=== PATIENT | female | born 1980 | race Two or more races ===

== ENCOUNTER 2019-12-05 19:49 | Emergency (ER) | payer MEDICAID ==
[~2019-12-05] VITALS: Ht 152.4 cm; Wt 63.0 kg
[~2019-12-05 19:49] MED LIST: NKM
[2019-12-05 19:56] VITALS: BP 114/70
--- NOTE | 2019-12-05 19:56 | NUR ---
ED Nurse Note: Pt walked in to ED from home c/o dry cough x 2 weeks. Denies fever/ chills. No SOB. Not in any distress. ERPA at bedside.
--- NOTE | 2019-12-05 20:00 | NUR ---
ED Nurse Note: Urine specimen collected and sent to lab.
--- NOTE | 2019-12-05 20:07 | NUR ---
ED Nurse Note: Xray at bedside.
--- NOTE | 2019-12-05 20:20 | Emergency Room Report ---
History of Present Illness General Chief Complaint: Upper Respiratory Illness Source: Patient Present Illness HPI 39 YO female presents to the ED c/o dry persistent cough x 2 weeks. She denies fevers or chills. She denies pain. She reports having some nasal congestion and rhinorrhea early on which has resolved. She reports her son was seen last week for similar symptoms and was placed onto antibiotics, and is now better. Pt. reports she is UTD with vaccinations. She denies recent travel. She denies hx of asthma, COPD or smoking hx. She denies any significant past medical history. She denies ST, ear pain, GAMEZ, neck pain/stiffness. She denies CP, Palpitations or SOB. Pt. reports her cough is worse at night. Allergies: Coded Allergies: NO KNOWN ALLERGIES (Unverified Allergy, Unknown, 09/13/15) Patient History Past Medical History: see triage record Past Surgical History: none Pertinent Family History: none Last Menstrual Period: na Now: No : 1 Para: 1 Reviewed Nursing Documentation: PMH: Agreed; PSxH: Agreed Nursing Documentation-PMH Past Medical History: No Stated History Hx Cardiac Problems: No Hx Hypertension: No Hx Pacemaker: No Hx Asthma: No Hx COPD: No Hx Diabetes: No Hx Cancer: No Hx Gastrointestinal Problems: No Hx Dialysis: No History Of Psychiatric Problem: No Hx Neurological Problems: No Hx Cerebrovascular Accident: No Hx Seizures: No Review of Systems All Other Systems: negative except mentioned in HPI Physical Exam Vital Signs Date Time Temp Pulse Resp B/P (MAP) Pulse Ox O2 Delivery O2 Flow Rate FiO2 12/05/19 19:51 98.1 86 18 114/70 (85) 97 Room Air Sp02 EP Interpretation: reviewed, normal General Appearance: no apparent distress, alert, GCS 15, non-toxic Head: normocephalic, atraumatic Eyes: bilateral eye normal inspection, bilateral eye PERRL ENT: hearing grossly normal, normal pharynx, normal voice, uvula midline, moist mucus membranes Neck: full range of motion, no meningismus Respiratory: chest non-tender, lungs clear, normal breath sounds, no respiratory distress, no accessory muscle use, no wheezing, speaking full sentences Cardiovascular #1: regular rate, rhythm, no edema Musculoskeletal: normal range of motion, gait/station normal, non-tender Neurologic: alert, motor strength/tone normal, oriented x3, sensory intact, responsive, speech normal Psychiatric: judgement/insight normal Skin: normal color Lymphatic: no adenopathy Medical Decision Making PA Attestation Dr. Dee Is my supervising Physician whom patient management has been discussed with. Diagnostic Impression: Primary Impression: Viral upper respiratory tract infection with cough ER Course 39 YO female presents to the ED c/o dry persistent cough x 2 weeks. She denies fevers or chills. She denies pain. She reports having some nasal congestion and rhinorrhea early on which has resolved. She reports her son was seen last week for similar symptoms and was placed onto antibiotics, and is now better. Pt. reports she is UTD with vaccinations. She denies recent travel. She denies hx of asthma, COPD or smoking hx. She denies any significant past medical history. She denies ST, ear pain, GAMEZ, neck pain/stiffness. She denies CP, Palpitations or SOB. Pt. reports her cough is worse at night. Ddx considered but are not limited to URI, pneumonia, PE, strep pharyngitis, meningitis. Vital signs: Pt. is afebrile, the remaining VS are WNL H&PE are most consistent with URI- no meningeal signs, oropharynx is not involved, no evidence of bacterial infection at this time. ORDERS: -Urine Hcg: Negative -CXR: Negative ED INTERVENTIONS: - --PT. EDUCATION: Discussed antibiotic resistance with inappropriate prescribing of antibiotics for viral illnesses. Discussed signs and symptoms to indicate viral illness versus bacterial illness. DISCHARGE: At this time pt. is stable for d/c to home. Will provide printed patient care instructions, and any necessary prescriptions. Care plan and follow up instructions have been discussed with the patient prior to discharge. Labs Test 12/05/19 20:00 Chest X-Ray Diagnostic Results Chest X-Ray Diagnostic Results : Chest X-Ray Ordered: Yes # of Views/Limited/Complete: 1 View EP Interpretation: Yes JACOB Xray: Interpretation reviewed, by supervising MD, and agrees with findings. Interpretation: no consolidation, no effusion, no pneumothorax, no acute cardiopulmonary disease Impression: No acute disease Electronically Signed by: Enedelia Jimenez PA-C Last Vital Signs Date Time Temp Pulse Resp B/P (MAP) Pulse Ox O2 Delivery O2 Flow Rate FiO2 12/05/19 19:51 98.1 86 18 114/70 (85) 97 Room Air Disposition: HOME, SELF-CARE Condition: Stable Scripts Benzonatate* (BENZONATATE*) 200 Mg Capsule 200 MG ORAL THREE TIMES A DAY for 7 Days, #21 PERLE Prov: Enedelia Jimenez 12/05/19 Guaifenesin/Dextromethorphan* (Guaifenesin Dm Syrup*) 5 Ml Syrup 10 ML ORAL Q6H PRN for FOR COUGH, #118 ML Prov: Enedelia Jimenez 12/05/19 Patient Instructions: Acute Bronchitis, [id number] Additional Instructions: Take medications as directed. Follow up with a Primary Care Provider in 3-5 days, even if your symptoms have resolved. Return sooner to ED if new symptoms occur, or current symptoms become worse. - Please note that this Emergency Department Report was dictated using [employer] repair manager technology software, occasionally this can lead to erroneous entry secondary to interpretation by the dictation equipment. Enedelia Jimenez Dec 05, 2019 20:20
[2019-12-05] MEDS ORDERED: GUAIFENESIN DM118 M1 ORAL (20:22)
[2019-12-05] MEDS ORDERED: BENZONATATE200 MG ORAL (20:22)
[2019-12-05 20:28] VITALS: BP 114/70
--- NOTE | 2019-12-05 20:28 | NUR ---
ED Nurse Note: Pt cleared by ERMD for discharge. DC instructions was given and explained to pt and verbalized understanding of teachings. prescription was sent electronically to the pharmacy of choice. All medical deviecs such as ID band removed. Pt is AAO x4, ambulatory and left with all personal belongings.
--- NOTE | 2019-12-06 10:13 | Diagnostic Imaging Report ---
Indication: Cough Technique: One view of the chest Comparison: none Findings: Lungs and pleural spaces are clear. Heart size is normal. Impression: No acute process
== END 2019-12-05 20:28 | disposition home or self-care (01) ==
LOC: EMR 20:13
DX: J06.9 Acute upper respiratory infection, unspecified (principal); B97.89 Other viral agents as the cause of diseases classified elsewhere
CPT/HCPCS: 71045; 81025; Z7502; 99283